=== PATIENT | male | born 1990 | race Two or more races ===

== ENCOUNTER 2016-09-27 18:15 | Emergency (ER) | payer SELFPAY ==
[~2016-09-27] VITALS: Ht 162.6 cm; Wt 63.5 kg
[~2016-09-27 18:15] MED LIST: COLACE100 MG ORAL; NKM; NORCO1 EA ORAL
[2016-09-27 18:40] VITALS: BP 108/65
[2016-09-27 21:45] VITALS: BP 112/66
[2016-09-27 21:49] VITALS: BP 112/66
--- NOTE | 2016-09-28 11:32 | Emergency Room Report ---
History of Present Illness General Chief Complaint: Alcohol Intoxication Source: EMS Present Illness HPI The patient is a 26-year-old male brought in by ambulance from work for supposed alcohol intoxication. The patient was found at the scene on the floor with an extra large bottle of tequila next to him. The patient is unable to provide any information at this time. Allergies: Coded Allergies: No Known Allergies (Unverified , 05/27/13) Patient History Past Medical History: see triage record Pertinent Family History: none Reviewed Nursing Documentation: PMH: Agreed, PSxH: Agreed Nursing Documentation-PMH Past Medical History: No Stated History Review of Systems All Other Systems: negative except mentioned in HPI Physical Exam Vital Signs Date Time Temp Pulse Resp B/P Pulse Ox O2 Delivery O2 Flow Rate FiO2 09/27/16 18:11 86 20 108/65 100 Room Air 09/27/16 18:40 98.4 Sp02 EP Interpretation: reviewed, normal General Appearance: non-toxic, lethargic Head: normocephalic, atraumatic Eyes: bilateral eye PERRL, bilateral eye normal inspection ENT: hearing grossly normal, normal pharynx, no angioedema Neck: full range of motion, no bony tend, supple/symm/no masses Respiratory: lungs clear, normal breath sounds, no respiratory distress, no retraction, no accessory muscle use, no wheezing Cardiovascular #1: regular rate, rhythm, no edema Gastrointestinal: normal bowel sounds, non tender, soft, non-distended, no guarding, no rebound Musculoskeletal: back normal, gait/station normal, normal range of motion, non- tender Neurologic: responsive, motor strength/tone normal, sensory intact, other - slurred speech Skin: normal color, no rash, warm/dry, well hydrated Lymphatic: no adenopathy Medical Decision Making PA Attestation Dr. Candelario is my supervising physician. Patient management was discussed with my supervising physician Diagnostic Impression: Primary Impression: Acute alcoholic intoxication ER Course The patient is a 26-year-old male brought in by ambulance from work for supposed alcohol intoxication. DDx considered but not limtied to: acute alcohol intoxication, hepatic encephalopathy, drug overdose, hypoglycemia, psychosis Physical exam: Vitals within normal limits. No apparent distress. Head is normocephalic atraumatic. Lungs clear to auscultation bilaterally. Abdomen is soft and nontender. The patient awakes to verbal and physical stimuli. Skin is warm and dry. Blood alcohol level is significantly elevated The patient is given time to rest in the emergency department. The patient will be discharged home when he is able to ambulate well and when he is alert and oriented. The patient is given information regarding alcohol abuse Laboratory Tests Test 09/27/16 18:40 Serum Alcohol 419 mg/dL Lab Results Impression Significantly elevated blood alcohol level Last Vital Signs Date Time Temp Pulse Resp B/P Pulse Ox O2 Delivery O2 Flow Rate FiO2 09/27/16 21:49 98.4 76 20 112/66 100 Room Air Status: improved Disposition: HOME, SELF-CARE Condition: Improved Referrals: NOT CHOSEN IPA/MD,REFERRING (PCP) Patient Instructions: Alcohol Use Disorder, Alcohol Intoxication Additional Instructions: My findings were discussed with the patient. Patient was counseled to seek help for alcohol abuse. Patient is stable for discharge, is alert and oriented, and can ambulate without difficulty. Patient is asked to return to ED if he experiences chest pain, abdominal pain, dizziness, falls down, or for any reason. WILLEM BELTRE Sep 28, 2016 11:32
== END 2016-09-27 21:50 | disposition home or self-care (01) ==
LOC: EDBD 18:15 → EMR 18:25
DX: F10.129 Alcohol abuse with intoxication, unspecified (principal); Y90.8 Blood alcohol level of 240 mg/100 ml or more
CPT/HCPCS: 36415; 99282; G0480; 80329